=== PATIENT | male | born 1995 | race African-American/Black ===

== ENCOUNTER 2019-05-22 15:57 | Emergency (ER) | payer BC ==
[~2019-05-22] VITALS: Ht 172.7 cm; Wt 139.5 kg
[~2019-05-22 15:57] MED LIST: ALBUTEROL0.09 MG/A1 IH; ALBUTEROL0.83 MG/ML IH; PREDNISONE10 MG PO; SINGULAIR
[2019-05-22 16:05] VITALS: BP 135/74
[2019-05-22 16:37] LABS: BASO % 0.3 % (0.0-2.0); EOS # 0.1 (0.0-0.7); EOS % 0.8 % (0-4.0); GRAN # 4.9 (1.4-6.5); HEMATOCRIT 42.8 % (42.0-52.0); HEMOGLOBIN 13.9 g/dl (13.5-18.0); LYMPH # 1.3 (1.2-3.4); LYMPH % 17.8 % (20.0-51.0); MEAN CELL VOLUME 83 fl (80.0-100.0); MEAN CORPUSCULAR HEMOGLOBIN 27 pg (27.0-31.0); MEAN CORPUSCULAR HGB CONC 33 g/dl (33.0-37.0); MEAN PLATELET VOLUME 9.5 fl (7.4-10.4); MONO # 0.9 (0.1-0.6); PLATELET COUNT 320 K/mm3 (130-400); RED BLOOD COUNT 5.19 M/mm3 (4.20-5.60); REDCELL DISTRIBUTION WIDTH-CV 13.2 % (11.5-14.5)
[2019-05-22 16:49] LABS: BILIRUBIN,TOTAL 1.2 mg/dL (0.0-1.0); C-REACTIVE PROTEIN 8.4 mg/dL (0.0-0.9); CALCIUM 9.7 mg/dL (8.4-10.2); CREATININE, serum 0.98 (0.66-1.25); POTASSIUM 4.1 mmol/L (3.4-5.0); TOTAL PROTEIN 9.3 gm/dL (6.4-8.2)
[2019-05-22] MEDS ORDERED: SEPTRA DS 8001 TAB PO (17:11)
[2019-05-22] MEDS ORDERED: CEPHALEXIN500 M1 PO (17:11)
[2019-05-22 17:30] VITALS: PULSE 102; TEMP 98.4
== END 2019-05-22 17:30 | disposition home or self-care (01) ==
LOC: COL.ER 15:57
PROVIDERS: Emergency Medicine
DX: L03.116 Cellulitis of left lower limb (principal); J45.909 Unspecified asthma, uncomplicated; Z79.52 Long term (current) use of systemic steroids

== ENCOUNTER 2020-09-17 20:51 | Emergency (ER) | payer OTHER ==
[~2020-09-17] VITALS: Ht 170.2 cm; Wt 136.4 kg
[~2020-09-17 20:51] MED LIST changes: +CEPHALEXIN500 M1 PO; +SEPTRA DS 8001 TAB PO
[2020-09-17 20:59] VITALS: TEMP 98
[2020-09-17] MEDS ORDERED: TRUVADA PO (21:02)
[2020-09-17] MEDS ORDERED: SINGULAIR 110 MG/TAB (21:02)
[2020-09-17] MEDS ORDERED: TOPAMAX 25MG25 M1 PO (21:03)
[2020-09-17] MEDS ORDERED: PHENTERMINE15 MG PO (21:03)
[2020-09-17 21:35] VITALS: BP 140/98; PULSE 89
== END 2020-09-17 21:35 | disposition home or self-care (01) ==
LOC: COL.ER 20:51
DX: S60.410A Abrasion of right index finger, initial encounter (principal); J45.909 Unspecified asthma, uncomplicated; Z79.52 Long term (current) use of systemic steroids; W26.8XXA Contact with other sharp object(s), not elsewhere classified, initial encounter; Y92.59 Other trade areas as the place of occurrence of the external cause; Y99.0 Civilian activity done for income or pay